=== PATIENT | female | born 1950 | race Caucasian/White ===

== ENCOUNTER → 2022-10-28 13:26 | Outpatient (BNVA) | payer MEDICARE, SELFPAY | PROVIDERS: PCP Physician Assistant; Visit Provider Neurological Surgery | DX: M54.2 Cervicalgia (principal); R29.2 Abnormal reflex; R26.89 Other abnormalities of gait and mobility | CPT/HCPCS: 99212 ==

== ENCOUNTER 2022-11-08 10:26 | Emergency (ER) | payer MEDICARE, SELFPAY ==
[2022-11-08 10:38] VITALS: BP 130/70; BP 139/74; PULSE 62; PULSE 80; RESP 16; TEMP 36.6; O2SAT 96; O2SAT 98; BMI 25.0
--- NOTE | 2022-11-08 11:10 | ED.GENADULT ---
HPI - General Adult General Chief complaint: Back Pain/Injury Stated complaint: Neck/back pain, feet spasms per EMS Time Seen by Provider: 11/08/22 10:45 Source: patient and EMS Mode of arrival: EMS Limitations: no limitations History of Present Illness HPI narrative: 72-year-old female with history of chronic back pain due to lumbar stenosis, patient now in the process of evaluation by Spine Clinic for then you cervical pain, patient is scheduled to have a cervical CT next week, patient try Tylenol and Neurontin for her pain with no relief. Patient is here for severe pain in the back and both legs. Related Data Previous Rx's Medication Instructions Recorded oxycodone 20 mg tablet 20 mg PO BID PRN pain #14 tabs 11/08/22 Allergies Allergy/AdvReac Type Severity Reaction Status Date / Time No Known Allergies Allergy Verified 11/08/22 11:07 Review of Systems Review of Systems: All other systems are reviewed and are negative Constitutional: Reports as per HPI and Reports no additional constitutional complaints Eyes: Reports as per HPI and Reports no additional eye complaints Reports system reviewed and no additional complaints, except as documented Cardiovascular: Reports as per HPI and Reports no additional cardiovascular complaints Respiratory: Reports as per HPI and Reports no additional respiratory complaints Gastrointestinal: Reports as per HPI and Reports no additional gastrointestinal complaints Genitourinary: Reports no additional female genitourinary complaints Musculoskeletal: Reports no additional musculoskeletal complaints Skin/Breast: Reports system reviewed and no additional complaints, except as docu Psychiatric: Reports no additional psychiatric complaints Endocrine: Reports no additional endocrine complaints Hematologic/Lymphatic: Reports no additional hematologic/lymphatic complaints Allergic/Immunologic: Reports no additional allergic/immunologic complaints Reports system reviewed and no additional complaints, except as documented and Reports Abnormal speech present [facility] Social History Social History Advance Directives: No Advance Directives Information Provided: No Physical Exam ED Vital Signs: Vital Signs - 24 hr 11/08/22 10:38 Temperature 97.9 F Pulse Rate 62 Respiratory Rate 16 Blood Pressure 139/74 Pulse Oximetry 96 Oxygen Delivery Method Room Air BMI result Body Mass Index 25.0 Vital signs have been reviewed as appeared to be correct. Blood pressure normal. Heart rate normal. Respiration rate normal. Temperature normal. Oxygen saturation normal. Appearance: Alert. Oriented X3. No acute distress. Head: Normal external exam. Normocephalic. Atraumatic. No Mike signs noted. No raccoon eyes noted Eyes: PERRLA. EOMI. Conjunctiva and sclera normal. Eyelids normal. ENT: TM's Normal. Pharynx normal. Uvula midline. Moist mucous membranes. No trismus noted. No drooling noted. No muffled voice noted. Neck: Normal inspection. Neck supple. FROM. No adenopathy. Thyroid Normal. No meningeal signs. No neck mass noted. CVS: Normal heart rate and rhythm. Heart sound normal. No murmurs noted. Pulses normal throughout. Respiratory: No respiratory distress. Painless inspiration. Breath sounds normal. No wheezes/rales/rhonchi noted. Chest nontender. No accessory muscle usage noted or decreased air movement noted. Abdomen: Soft and nontender. Bowel sounds normal in all 4 quadrants. No distention noted. No organomegaly noted. No visible injury noted. Back: No CVA tenderness. Full range of motion noted. Skin: Skin warm and dry. Normal skin color. Normal skin turgor. No rashes/lesions/lacerations noted. Extremities: No lower extremity edema. Extremities exhibit normal range of motion. Extremities nontender. Neuro: Oriented X 3. Cranial nerve exam: II-XII are grossly intact No motor deficit. No sensory deficit. Reflexes normal. Course Course Course Narrative: Acute on chronic neck pain/back pain patient already is following with spine clinic likely to have laparoscopic spine surgery common patient is here for pain will start on oxycodone to control her pain. Medications Administered Discontinued Medications Generic Name Dose Route Start Last Admin Trade Name Freq PRN Reason Stop Dose Admin Oxycodone HCl 5 mg 11/08/22 11:07 11/08/22 11:16 Oxycodone Hcl Immed Release 5 Mg Tablet PO 11/08/22 11:08 5 mg ONCE ONE Administration Medical Decision Making Differential Diagnosis Differential Diagnoses: The differential diagnosis associated with the presentation includes (Cervical spine arthritis, herniated disc, neural canal stenosis, pain control.) Discharge Plan Discharge Clinical Impression: Neck pain Patient Disposition: Home, Self-Care Instructions: Chronic Neck Pain (DC) Additional Instructions: Keep your appointment for the outpatient C-spine CT and with the spine clinic. Prescriptions: New oxycodone 20 mg tablet 20 mg PO BID PRN (Reason: pain) Qty: 14 0RF Rx Instructions: Partial Fill upon patient request. Referrals: Shirley Coburn PA-C [Primary Care Provider] -
[2022-11-08] MEDS: oxyCODONE HCl Immed Release 5 MG TABLET PO (11:16)
[2022-11-08 11:46] VITALS: BP 137/82; PULSE 61; RESP 18; O2SAT 95
--- NOTE | 2022-11-08 12:08 | MHC.CM.ED ---
Addendum entered by Nayely Goncalves 11/10/22 06:54: Patient has been accepted by [facility] and will reach out to patient. Original Note: Received case management consult from Dr Friend. Patient was already discharged but needs nursing home VNA. Patient has [employer] insurance. Referral broadcasted at this time to see which agency can accept patient. Continue to monitor for d/c needs.
== END 2022-11-08 11:59 | disposition home or self-care (01) ==
PROVIDERS: Emergency Provider Emergency Medicine; PCP Physician Assistant
DX: M54.2 Cervicalgia (principal); M54.50 Low back pain, unspecified
CPT/HCPCS: 99283; 99284

== ENCOUNTER 2022-11-12 13:20 | Outpatient (REF) | payer MEDICARE, SELFPAY ==
--- NOTE | ~2022-11-12 | CT_ITS ---
EXAMINATION: CT CERVICAL SPINE WITHOUT CONTRAST CLINICAL INFORMATION: Cervicalgia. COMPARISON: None available. TECHNIQUE: Multidetector helical imaging of the cervical spine was obtained without intravenous contrast. Multiple axial reformats and coronal/sagittal reconstructions were created the technologist workstation for review. This CT examination was performed using dose optimization techniques as appropriate, variously including the following: *Automated exposure control. *Adjustment of mA and/or kV according to patient size (this includes techniques or standardized protocols for targeted exams where dose is matched to indication/reason for exam; i.e. extremities or head). *Use of iterative reconstruction technique. DLP: 405 mGy-cm FINDINGS: The atlantooccipital and atlantoaxial articulations remain well aligned. Ankylosis of the right-sided C3-C4 facets. Mild reversal the normal cervical lordosis centered on C5. Mild degenerative anterolisthesis of C4 on C5. Moderate degenerative retrolistheses of C5 on C6 and C6 on C7. Mild degenerative anterolisthesis of C7 on T1. No evidence of acute fracture or subluxation. The vertebral body heights are maintained. Advanced degenerative disc disease at C5-C6 and C6-C7. Moderate degenerative disc disease at all additional levels. There is no prevertebral soft tissue swelling. The thyroid gland and remaining cervical soft tissues are within normal limits. The lung apices demonstrate no abnormalities. SPINAL LEVELS: C2-C3: Mild disc-osteophyte complex. There is no uncovertebral joint arthropathy. There is severe left and moderate right facet joint arthropathy. There is no neural foraminal stenosis. There is no demonstrated spinal canal stenosis. C3-C4: Mild disc-osteophyte complex. There is moderate right and mild left uncovertebral joint arthropathy. There is severe right and moderate left facet joint arthropathy. There is moderate right and no left neural foraminal stenosis. There is no demonstrated spinal canal stenosis. C4-C5: Moderate disc-osteophyte complex. There is moderate bilateral uncovertebral joint arthropathy. There is severe bilateral facet joint arthropathy. There is severe right and moderate left neural foraminal stenosis. There is no demonstrated spinal canal stenosis. C5-C6: Moderate disc-osteophyte complex. There is severe left and moderate right uncovertebral joint arthropathy. There is moderate bilateral facet joint arthropathy. There is severe left worse than right neural foraminal stenosis. There appears to be mild spinal canal stenosis. C6-C7: Mild disc-osteophyte complex. There is severe left and moderate right uncovertebral joint arthropathy. There is severe right and moderate left facet joint arthropathy. There is severe left and moderate right neural foraminal stenosis. There is no demonstrated spinal canal stenosis. C7-T1: Mild disc-osteophyte complex. There is no uncovertebral joint arthropathy. There is severe right and moderate left facet joint arthropathy. There is no neural foraminal stenosis. There is no demonstrated spinal canal stenosis. CT/CT cervical spine wo IV con IMPRESSION: 1. No evidence of acute fracture or traumatic subluxation of the cervical spine. 2. Advanced multilevel degenerative spondyloarthropathy of the cervical spine as described in detail above. Most notably on this limited exam without intrathecal contrast, there appears to be mild spinal canal stenosis at C5-C6. Moderate to severe neural foraminal stenoses from C3-C7.
== END 2022-11-12 13:21 | disposition home or self-care (01) ==
LOC: HO.CT 13:20
PROVIDERS: PCP Physician Assistant; Visit Provider Neurological Surgery
DX: M54.2 Cervicalgia (principal); R26.89 Other abnormalities of gait and mobility; R29.2 Abnormal reflex
CPT/HCPCS: 72125

== ENCOUNTER 2022-12-15 14:40 | Outpatient (AMB) | payer MEDICARE, SELFPAY ==
--- NOTE | 2022-12-15 15:01 | A.SPINEOV_ITS ---
Intake Intake Visit Reasons: 3 month follow up Intake Note: Ms. Lambert is here today for her 3mo. f/u. CT Scan done @ [facility] [place]. Handwriting Expert Required: No Allergies No Known Allergies Allergy (Verified 11/08/22 11:07) Assessment & Plan Assessment & Plan (1) Neurogenic claudication due to lumbar spinal stenosis: Code(s): M48.062 - Spinal stenosis, lumbar region with neurogenic claudication Plan Dear?Colleague, On?December?,?2022,?I?saw?for?follow-up?Dede Petra.??As?you?know,?she?is?suff ering?from?back?pain?and?bilateral?leg?pain?with?numbness,?tingling?and?weakness .??A?CT?of?the?lumbar?spine?shows?severe?lumbar?spinal?stenosis?L3-4?and?L4-5. ?she?originally?was?scheduled?to?undergo? a?parathyroidectomy?but?recently?she?had?a?significant?increase?in?her?radicular ?symptoms?and?therefore?she?was?advised?to?undergo?the?lumbar?decompression?firs t. ?I?excluded?cervical?spinal?cord?comp ression?with?a?CT?of?the?cervical?spine.??We?discussed?an?L3-4?and?L4-5?lumbar?d ecompression.??She?will?need?to?have?cardiology?clearance.??She?will?need?to?sto p?her?Eliquis?3?days?prior.??She?schedul ed?for?January?.??Her?daughter?will?stay?with?her?postoperatively.??I?spent? 20?minutes?in?his?consult?to?discuss?the?procedure?and?the?expected?postoperativ e?course.?? Tani?Roya??,?PhD Spine?Fellowship?Trained?Neurosurgeon Director,?[facility]? [facility]? Coding Level of Care Code Est Pt Level 2 (40626) Diagnoses Neurogenic claudication due to lumbar spinal stenosis M48.062
--- NOTE | 2022-12-15 15:01 | HO.SPINEOV ---
Intake Intake Visit Reasons: 3 month follow up Intake Note: Ms. Lambert is here today for her 3mo. f/u. CT Scan done @ [facility] [place] Environmental Remediation Specialist Required: No Allergies No Known Allergies Allergy (Verified 11/08/22 11:07) Assessment & Plan Assessment & Plan (1) Neurogenic claudication due to lumbar spinal stenosis: Code(s): M48.062 - Spinal stenosis, lumbar region with neurogenic claudication Plan Dear?Colleague, On?December?,?2022,?I?saw?for?follow-up?Dede Petra.??As?you?know,?she?is?suffering?from?back?pain?and?bilateral?leg?pain?with?numbness,?tingling?and?weakness.??A?CT?of?the?lumbar?spine?shows?severe?lumbar?spinal?stenosis?L3-4?and?L4-5. ?she?originally?was?scheduled?to?undergo?a?parathyroidectomy?but?recently?she?had?a?significant?increase?in?her?radicular?symptoms?and?therefore?she?was?advised?to?undergo?the?lumbar?decompression?first. ?I?excluded?cervical?spinal?cord?compression?with?a?CT?of?the?cervical?spine.??We?discussed?an?L3-4?and?L4-5?lumbar?decompression.??She?will?need?to?have?cardiology?clearance.??She?will?need?to?stop?her?Eliquis?3?days?prior.??She?scheduled?for?Septem isidoro?14.??Her?daughter?will?stay?with?her?postoperatively.??I?spent?20?minutes?in?his?consult?to?discuss?the?procedure?and?the?expected?postoperative?course.?? Tani?Roya??,?PhD Spine?Fellowship?Trained?Neurosurgeon Director,?[facility]?[place]? [facility]? Coding Level of Care Code Est Pt Level 2 (36347) Diagnoses Neurogenic claudication due to lumbar spinal stenosis M48.062
== END 2022-12-15 15:57 | disposition home or self-care (01) ==
PROVIDERS: PCP Physician Assistant; Visit Provider Neurological Surgery
DX: M48.062 Spinal stenosis, lumbar region with neurogenic claudication (principal)
CPT/HCPCS: 99212

== ENCOUNTER → 2022-12-15 14:40 | Outpatient (BNVA) | payer MEDICARE, SELFPAY | PROVIDERS: PCP Physician Assistant; Visit Provider Neurological Surgery | DX: M48.062 Spinal stenosis, lumbar region with neurogenic claudication (principal) | CPT/HCPCS: 99212 ==

== ENCOUNTER 2023-01-28 07:27 | Day surgery (SDC) | payer MEDICARE, SELFPAY ==
[2023-01-14 13:34] VITALS: BP 119/65; PULSE 66; RESP 18; O2SAT 97; BMI 27.0
--- NOTE | 2023-01-27 08:21 | P.CONAN_ITS ---
Documented by User: Yin Hill NP 01/27/23 08:38 HPI - Anesthesia Eval Consult details Narrative: 72yo F for L3-4,L4-5 Micro Lumbar discectomy Medically optimized St Sudeep pacer in situ Eliquis for afib Last cardiac office visit 09/2022. Stable with 9 mo f/u PAT eval 01/14/[address] Rajan [facility] Active Problems Active Problems: All Active Problems (Updated 01/14/23 @ 13:18 by Kelli Cage RN) Neurogenic claudication due to lumbar spinal stenosis (Acute) Neck pain (Acute) Hyper reflexia (Acute) Balance problems (Acute) Past Medical History Medical History Glaucoma Arthritis Sleep apnea Suicide attempt by drug overdose Depression CINDI (generalized anxiety disorder) HTN (hypertension) Hyperparathyroidism Pacemaker Non-ischemic cardiomyopathy Atrial fibrillation DVT (deep venous thrombosis) PFO (patent foramen ovale) Neck pain Lumbar spinal stenosis Surgical History Surgical History History of trabeculectomy Hx of bilateral cataract extraction History of esophagogastroduodenoscopy (EGD) H/O colonoscopy Hx of section History of left hip replacement History of total bilateral knee replacement S/P cardiac pacemaker procedure S/P ablation of atrial fibrillation Hx of heart surgery Social History Social History Housing Other:: senior housing Are you a primary hearing care professional to a significant other at home: No Do you presently have visiting nurse or other home services: No Patient Tobacco Use Status: Never used Tobacco Use of substances other than those prescribed or required for medical reasons: No Have you been hit, kicked, punched, or otherwise hurt by someone within the past year? If so, by whom?: No Are you DNR?: No Advance Directives: Yes Advance Directives Information Provided: Yes Advance Directives on File: Yes Advance Directives Date on File: 11/08/22 Recently lost weight without trying: No Nutrition Risks: No Nutritional Risk Poor oral hygiene: Yes (broken teeth) Meds Allergies Allergy/AdvReac Type Severity Reaction Status Date / Time No Known Allergies Allergy Verified 11/08/22 11:07 Home Medications Medication Instructions Recorded Confirmed Last Taken Type apixaban 5 mg tablet (Eliquis) 5 mg PO BID 01/13/23 01/13/23 01/25/23 History carvedilol 6.25 mg tablet 6.25 mg PO BID 01/13/23 01/13/23 01/28/23 History escitalopram oxalate 10 mg tablet 10 mg PO DAILY 01/13/23 01/13/23 01/27/23 History escitalopram oxalate 20 mg tablet 20 mg PO DAILY 01/13/23 01/13/23 01/27/23 History gabapentin 400 mg capsule 800 mg PO TID 01/13/23 01/13/23 01/27/23 History hydroxyzine pamoate 50 mg capsule 50 mg PO BEDTIME 01/13/23 01/14/23 01/27/23 History valsartan 40 mg tablet 20 mg PO BID 01/13/23 01/13/23 01/27/23 History melatonin 5 mg tablet 5 mg PO BEDTIME 01/14/23 01/14/23 01/27/23 History sennosides 8.6 mg tablet (senna) 34.4 mg PO QWEEK 01/14/23 01/14/23 01/19/23 History tramadol 50 mg tablet 100 mg PO TID 01/14/23 01/14/23 01/27/23 History Exam Exam Date and Time: January 27, 2023 0821 Height,Weight and Vital Signs: Height 5 ft 5 in Weight 73.482 kg Last Vital Signs Pulse 66 01/14/23 13:34 Resp 18 01/14/23 13:34 BP 119/65 01/14/23 13:34 Pulse Ox 97 01/14/23 13:34 O2 Del Method Room Air 01/14/23 13:34 Pertinent Lab Results Pertinent Lab Results: BMP and CBC 10/2022 from outside facility wnl Narrative Narrative: Pacer Interr 12/2022 DDDR-60 40% paced from RA 99% MATERIAL REQUISITIONER Nml lead and device function EKG 10/2022 AV dual paced rhythm ECHO 2020 LV wall thickness nml EF 50-55% Abnormal septal motion c/w pacer Grade I DD LA nml in size Ascending aorta dilated Pacer wire in RV. RV is nml in size. Small pericardial effusion Assessment and Plan Assessment Anesthesia Assessment: Chart Reviewed Documented by User: Shabana Liu MD 01/28/23 08:03 HPI - Anesthesia Eval Consult details Narrative: 72yo F for L3-4,L4-5 Micro Lumbar discectomy Medically optimized St Sudeep pacer in situ Eliquis for afib Last cardiac office visit 09/2022. Stable with 9 mo f/u PAT eval 01/14/[address] Satinder DONAHUE Active Problems Active Problems: All Active Problems (Updated 01/28/23 @ 07:34 by Shabana Liu MD) Neurogenic claudication due to lumbar spinal stenosis (Acute) Neck pain (Acute) Hyper reflexia (Acute) Balance problems (Acute) Review of chart reveals patient has a MATERIAL REQUISITIONER-D device placed in 2016. Last checked 12/2022 Was scheduled to have parathyroid surgery but rescheduled to follow spine surgery Past Medical History Medical History Glaucoma Arthritis Sleep apnea Suicide attempt by drug overdose Depression CINDI (generalized anxiety disorder) HTN (hypertension) Hyperparathyroidism Pacemaker Non-ischemic cardiomyopathy Atrial fibrillation DVT (deep venous thrombosis) PFO (patent foramen ovale) Neck pain Lumbar spinal stenosis Family History Family history of problems with anesthesia: No Surgical History Surgical History History of trabeculectomy Hx of bilateral cataract extraction History of esophagogastroduodenoscopy (EGD) H/O colonoscopy Hx of section History of left hip replacement History of total bilateral knee replacement S/P cardiac pacemaker procedure S/P ablation of atrial fibrillation Hx of heart surgery History of Problems with Anesthesia: Yes (PONV but fine if receives anti- emetics) Social History Social History Housing Other:: senior housing Are you a primary hearing care professional to a significant other at home: No Do you presently have visiting nurse or other home services: No Patient Tobacco Use Status: Never used Tobacco Use of substances other than those prescribed or required for medical reasons: No Have you been hit, kicked, punched, or otherwise hurt by someone within the past year? If so, by whom?: No Are you DNR?: No Advance Directives: Yes Advance Directives Information Provided: Yes Advance Directives on File: Yes Advance Directives Date on File: 11/08/22 Recently lost weight without trying: No Nutrition Risks: No Nutritional Risk Poor oral hygiene: Yes (broken teeth) Meds Allergies Allergy/AdvReac Type Severity Reaction Status Date / Time No Known Allergies Allergy Verified 11/08/22 11:07 Home Medications Medication Instructions Recorded Confirmed Last Taken Type apixaban 5 mg tablet (Eliquis) 5 mg PO BID 01/13/23 01/13/23 01/25/23 History carvedilol 6.25 mg tablet 6.25 mg PO BID 01/13/23 01/13/23 01/28/23 History escitalopram oxalate 10 mg tablet 10 mg PO DAILY 01/13/23 01/13/23 01/27/23 History escitalopram oxalate 20 mg tablet 20 mg PO DAILY 01/13/23 01/13/23 01/27/23 History gabapentin 400 mg capsule 800 mg PO TID 01/13/23 01/13/23 01/27/23 History hydroxyzine pamoate 50 mg capsule 50 mg PO BEDTIME 01/13/23 01/14/23 01/27/23 History valsartan 40 mg tablet 20 mg PO BID 01/13/23 01/13/23 01/27/23 History melatonin 5 mg tablet 5 mg PO BEDTIME 01/14/23 01/14/23 01/27/23 History sennosides 8.6 mg tablet (senna) 34.4 mg PO QWEEK 01/14/23 01/14/23 01/19/23 History tramadol 50 mg tablet 100 mg PO TID 01/14/23 01/14/23 01/27/23 History Exam Height,Weight and Vital Signs: Height 5 ft 5 in Weight 73.482 kg Last Vital Signs Pulse 66 01/14/23 13:34 Resp 18 01/14/23 13:34 BP 119/65 01/14/23 13:34 Pulse Ox 97 01/14/23 13:34 O2 Del Method Room Air 01/14/23 13:34 Vital Signs Temp Pulse Resp BP Pulse Ox O2 Del Method 01/28/23 07:49 97 F 68 20 108/58 L 98 Room Air Airway Mallampati Class: III (Small mouth opening) TM Dist: >3cm Neck ROM: Full Loose/Missing/Broken Teeth: Yes (Many broken- grinds teeth. Some missing. Denies loose teeth) Heart: RRR Lungs: CTAB Assessment and Plan Assessment Anesthesia Assessment: Anesthesia Plan Discussed Final Anesthetic Review Family History of Problems with Anesthesia: No History of Problems with Anesthesia: Yes (PONV but fine if receives anti- emetics) NPO: Yes ASA Class: IV Final Preanesthetic Review: No Changes in Pt Med Stat, Meds/Allgs Chart Reviewed, Consent Obtained/Reviewed and Anes Risks/Benef Reviewed Patient Risk: High Procedure Risk: Intermediate Assessment/Block/Sedation in SS: Assess/Block/Sedation-SS Anesthetic Plan Anesthetic Plan: GA Disposition: Standard PACU
[2023-01-28] VITALS (11 sets, daily range): BP systolic 108–137; BP diastolic 58–79; PULSE 59–68; RESP 13–20; TEMP 36.1; O2SAT 94–100
--- NOTE | ~2023-01-28 | FL_ITS ---
EXAMINATION: XR FLUOROSCOPY WITH IMAGES CLINICAL INFORMATION: L3-L4, L4-L5 discectomy. COMPARISON: None available. TECHNIQUE: Fluoroscopy Supervised By: Dr. Tani Pryor. Fluoroscopy Time: 0.0 minutes. Cumulative Dose: 4.47 mGy. DAP: 0.0515 Gycm2. Images: 1. FINDINGS: Image demonstrates surgical instrument projecting over the posterior elements at the L4-5 disc space level. There may be anterior subluxation of L5 with respect to S1. FL/FL guidance in OR IMPRESSION: Fluoroscopy guidance for spine surgery.
--- NOTE | 2023-01-28 07:22 | MHC.SHP ---
Pre-Procedural Eval Section A Date of Service: 01/28/23 Section B Chief Complaint: Spinal stenosis, lumbar region with neurogenic cla Allergies: Allergies Allergy/AdvReac Type Severity Reaction Status Date / Time No Known Allergies Allergy Verified 11/08/22 11:07 Review of Systems Sugical H&P ROS: Negative: Constitution, Cardiovascular, Respiratory, Neurological, Psychiatric, Hem-Onc, Allergic/Immunologic, Gastrointestinal, Genitourinary, Musculoskeletal, Integumentary, Endocrine and Eyes/Ears/Nose/Throat Exam Surgical H&P Exam: Not Evaluated: HEENT, Not Evaluated: Heart, Not Evaluated: Lungs, Not Evaluated: Extremities, Not Evaluated: Abdomen, Not Evaluated: Skin and Not Evaluated: Neurological Plan Diagnosis/Plan: Unchanged I have reviewed the history and physical and performed a pertinent physical examination on my patient. No changes have occurred unless specified. Plan remains the same, L3-4, L4-5 decompression. Time Spent With Patient Time: Total time managing care of this patient today __10__ minutes.
[2023-01-28] MEDS: Lactated Ringers 1,000 ML 100 ML IVCONT (08:09)
[2023-01-28] MEDS: Gabapentin 300 MG CAPSULE PO (08:09)
[2023-01-28] MEDS: methocarbamoL 750 MG TABLET PO (08:09)
--- NOTE | 2023-01-28 11:44 | PM.DS ---
DS: Providers Provider Date of Service: 01/28/23 Primary care physician: Shirley Coburn PA-C DS: Summary Time Spent with Patient Time attestation: Total time managing care of this patient today ____ minutes. Discharge coordination time: Less than 30 minutes Quality: Safe Use of Opioids Does Pt have an Active Cancer Diagnosis on the Problem List?: No Quality: Stroke Does the patient have a stroke diagnosis?: No Physical Exam Vital Signs: Vital Signs: Last Vital Signs Temp 97 F 01/28/23 07:49 Pulse 68 01/28/23 07:49 Resp 20 01/28/23 07:49 BP 108/58 L 01/28/23 07:49 Pulse Ox 98 01/28/23 07:49 O2 Del Method Room Air 01/28/23 07:49 BMI result Body Mass Index 27.0 DS: Data Data Completed and Pending Labs on day of discharge: Laboratory Results - last 24 hr 01/28/23 08:07 Blood Type O Positive Antibody Screen NEGATIVE Discharge Plan Discharge Patient Disposition: Home, Self-Care Referrals: Shirley Coburn PA-C [Primary Care Provider] - 1 Week Discharge Medications: Continued carvedilol 6.25 mg tablet 6.25 mg PO BID gabapentin 400 mg capsule 800 mg PO TID hydroxyzine pamoate 50 mg capsule 50 mg PO BEDTIME escitalopram oxalate 10 mg tablet 10 mg PO DAILY escitalopram oxalate 20 mg tablet 20 mg PO DAILY valsartan 40 mg tablet 20 mg PO BID tramadol 50 mg tablet 100 mg PO TID sennosides [senna] 8.6 mg Tablet 34.4 mg PO QWEEK melatonin 5 mg Tablet 5 mg PO BEDTIME donepezil 5 mg tablet 5 mg PO DAILY lamotrigine 25 mg tablet 25 mg PO DAILY lorazepam 0.5 mg tablet 0.5 mg PO DAILY PRN (Reason: Anxiety) Held Eliquis 5 mg tablet 5 mg PO BID Hold Instructions: Resume on 02/01/23. Hold for 3 days post-operative. May resume 02/02/23 Discharge Orders: Discharge Order (Routine); Ordered 01/28/23 Ordered By: Elian Morales Diet: Advance to usual diet Activity on Discharge: As tolerated Activity Restrictions/Additional Instructions: After your spinal surgery we ask you to observe the following restrictions/guidelines: Activity: It is normal to feel some discomfort as you increase your activity, but that will improve with time. We ask you avoid heavy lifting or acitivities that cause pain. As a general rule, 8lbs is a safe limit for lifting right after surgery. Walk as much as you feel comfortable but not to exhaustion. You will feel extra tired the first few days after surgery. Stay well hydrated. It is OK to walk up and down stairs You may return to driving when you are off narcotics (such as vicodin, oxycodone, dilaudid, etc), and you are back to normal functional capacity. If you have any concerns please check with office before driving. Return to work is specific to each patient and each surgery, so please speak with your doctor/PA at first follow up. Please bring paperwork such as FMLA at that time if you need it filled out. Medications: We will give you a short supply of narcotics after surgery (usually one weeks worth). If you need more please call the office but do not use more than prescribed. You will need to give our office 48 hours notice if you need narcotics refilled and we do not fill narcotics on weekends or evenings. If you are on a narcotic, it is a good idea to take a stool softener such as colace or senna to avoid constipation If you take blood thinner such as aspirin, Plavix, Coumadin, Effient, Eliquis etc for conditions such as Afib, DVT, Pulmonary embolus, coronary disease, stents etc please speak with your surgeon about specific details as to when you can resume these medications. You can resume NSAIDs on post op day 1 (eg: Motrin, Naproxen, etc). Follow up: Please call the office, , after surgery to arrange a 3 week follow up for wound check. Wound Care: You may remove your dressing on the first day after surgery. You may leave open to air. Please do not remove the steri strips underneath. they will fall off on their own in one week. IT IS NORMAL FOR THE WOUND TO OOZE OR BE BLOODY FOR A FEW DAYS AFTER SURGERY. IF THIS HAPPENS JUST PLACE NEW DRESSING OVER IT TO AVOID STAINING CLOTHES. You may shower on post op day # 1 We ask that you do not let the water soak the wound. If it does get wet, just towel dry lightly. Please do not scrub your incision or place any type of chemical/ointment on the wound. No tub baths, pools or jacuzzis for one month. If you have any leaking or redness from your wound, or fevers, please call the office.
[2023-01-28] MEDS: oxyCODONE HCl Immed Release 5 MG TABLET PO (12:32)
[2023-01-28] MEDS: HYDROmorphone HCl 0.5 MG/0.5 ML SYRINGE 0.25 MG IVPUSH ×2 (12:45→12:50)
--- NOTE | 2023-01-28 14:12 | P.OP_ITS ---
Operative Note Operative Note Date of Service: 01/28/23 Narrative: Preoperative Diagnosis: L3-4 and L4-5spinal stenosis/lateral recess stenosis Operation: L3-4 and L4-5 Laminotomy, Partial facetectomy with use of microscope Consent Informed Consent was obtained for this operation. I have explained the nature, purpose and benefits of the operation. I have discussed the risks and benefit of the operation including possible complications or adverse events with patient/family. Alternative(s) were discussed with the patient with their relative benefits and risks as well as the consequences of not accepting the operation were included in obtaining consent. Surgeon: STELLA ROJO MD, PHD Procedure Assisted By: Ronak Morillo Description of Procedure this 72-year-old femur suffering from neurogenic claudication and back pain. A CT of the lumbar spine shows severe L3-4 spinal stenosis, I previous right L4-5 decompression and lateral recess stenosis at L4-5 on the left side. She was offered a decompression of the above-mentioned levels.. The procedure complica tions were explained. The patient was consented. The patient was brought to the operating room and endotracheally intubated. The patient was turned in prone position on the Loy frame. Prep and drape was done followed by timeout. The Physician assistant speech language pathologist provided access. A mid lumbar incision was made followed by release of the paravertebral muscle bilaterally to expose the L3-4 and L4-5 lamina and facet joints. An intraoperative x-ray was obtained to confirm the correct level. The microscope was brought in. I took over the procedure. the interspinous ligament was resected between L3-L4 all as a part of the spinous processes to enter the L3-4 interlaminar space. The high-speed drill was used to do a L3-4 laminotomy until flavum ligament was reached. a 2. Kerrison was used to expand the laminotomy near flush to the pedicles and to include a partial facetectomy. The flavum and was opened and resected with a 3. Kerrison to decompress the underlying thecal sac. The flavum ligament was removed to decompress the lateral recess and the exiting L4 nerve roots bilaterally. A long nerve hook could be easily passed along the medial side of the pedicles as a sign of adequate decompression. then attention was turned to the L4-5 level where a left-sided L4-5 lumbar laminotomy was done followed by opening and resection of the flavum ligament to decompress the underlying thecal sac and exiting L5 nerve root.The microscope was removed. Hemostasis was done. The physician assistant speech language pathologist close the Incision in 2 layers. Steri-Strips were used to approximate incision. An OpSite with Tegaderm was used to cover the incision. All sponge needle counts were correct. Patient was extubated and transported in stable is to recovery room. Anesthesia: General Estimated Blood Loss (ml): 60 mL Complications: None Duration of Surgery: Under 60 Minutes Postoperative Plan: Discharge to home
== END 2023-01-28 14:45 | disposition home or self-care (01) ==
PROVIDERS: PCP Physician Assistant; Visit Provider Neurological Surgery
PROC: (CPT 63047; principal; 2023-01-28 09:20)
DX: M48.062 Spinal stenosis, lumbar region with neurogenic claudication (principal); G89.29 Other chronic pain; R20.0 Anesthesia of skin; R20.2 Paresthesia of skin; M54.2 Cervicalgia; R29.2 Abnormal reflex; R26.89 Other abnormalities of gait and mobility; I48.91 Unspecified atrial fibrillation; Z95.0 Presence of cardiac pacemaker; I42.8 Other cardiomyopathies; I10 Essential (primary) hypertension; G47.33 Obstructive sleep apnea (adult) (pediatric); Z79.01 Long term (current) use of anticoagulants; Z98.890 Other specified postprocedural states; Z79.899 Other long term (current) drug therapy
CPT/HCPCS: 63047; 63048; 86850; 86900; 86901; J0131; J0690; J1100; J1170; J1885; J2250; J2371; J2405; J2550; J2765; J3010

== ENCOUNTER → 2023-01-28 07:27 | Outpatient (BNV) | payer MEDICARE, SELFPAY | PROVIDERS: PCP Physician Assistant; Visit Provider Physician Assistant | DX: M48.062 Spinal stenosis, lumbar region with neurogenic claudication (principal) | CPT/HCPCS: 63047; 63048 ==